=== PATIENT | female | born 1970 | race Two or more races ===

== ENCOUNTER 2020-11-17 06:23 | Emergency (ER) | payer OTHER ==
[2020-11-17 08:11] LABS: HEMOGLOBIN 13.4 gm/dl (12.3-15.3); RED BLOOD COUNT 4.18 M/UL (4.00-5.10); WHITE BLOOD COUNT 4.6 K/UL (4.5-11.0)
[2020-11-17 08:46] LABS: BUN/CREATININE RATIO 20 (0-10)
[2020-11-17] MEDS ORDERED: OMNICEF 300 MG300 MG PO (14:03)
[2020-11-17] MEDS ORDERED: VENTOLIN HFA 66.7 GM INH (14:03)
== END 2020-11-17 14:50 | disposition home or self-care (01) ==
LOC: ER1 06:23
PROVIDERS: Emergency Medicine
DX: U07.1 COVID-19 (principal); N83.202 Unspecified ovarian cyst, left side; Z20.822 Contact with and (suspected) exposure to COVID-19; R94.5 Abnormal results of liver function studies; Z90.710 Acquired absence of both cervix and uterus
CPT/HCPCS: 71045; 80053; 81001; 83690; 84703; 85025; 85379; 87040; 87086; 96365; 96375; 96376; 99284; J0696; J2270; J2405; U0002